=== PATIENT | male | born 2000 | race African-American/Black ===

== ENCOUNTER 2022-02-28 21:55 | Emergency (ER) | payer SELFPAY ==
--- NOTE | ~2022-02-28 | XR_ITS ---
EXAMINATION: XR chest 1V portable DATE: 02/28/2022 23:39 INDICATION: Cough. COVID-19 positive. TECHNIQUE: A single frontal view of the chest was obtained. COMPARISON: None. FINDINGS: There are mild airspace opacities in the lower lung zones. No pleural effusion or pneumotho rax. The heart size is normal. IMPRESSION: 1. Mild airspace opacities in the lower lung zones, consistent with atelectasis versus pneumonia. Reviewed, dictated and finalized at location A.
[2022-02-28 22:06] VITALS: BP 153/81; PULSE 89; RESP 18; TEMP 37.2; O2SAT 100
--- NOTE | 2022-02-28 22:06 | ED.URI ---
HPI - URI/Sore Throat General Chief Complaint: Upper Respiratory Infection Stated Complaint: AMB Time Seen by Provider: 02/28/22 22:06 Source: patient History of Present Illness HPI Narrative: 21-year-old male with no significant past medical history presents to the ER with a 12 hour history of -- nausea with decreased oral intake. No vomiting or diarrhea. -- diffuse abdominal pain. -- Low-grade fever -- Body ache which is generalized. -- Sore throat MD elicited complaint: fever and sore throat Onset (ago): hour(s) ( started around noon.) Consistency: constant Severity: moderate Able to tolerate fluids by mouth: No Exacerbating factors: nothing Relieving factors: nothing Associated symptoms: fever, myalgias, headache, sore throat, abdominal pain and nausea Treatments prior to arrival: none Related Data Home Medications Medication Instructions Recorded Confirmed No Home Medications 02/28/22 02/28/22 Allergies Allergy/AdvReac Type Severity Reaction Status Date / Time codeine Allergy Unknown Verified 02/28/22 22:05 Review of Systems Review of Systems: All systems reviewed & are unremarkable except as noted in HPI and below Constitutional: Constitutional: Reports as per HPI, Reports no additional constitutional complaints and Reports fever(s) Eyes: Eyes: Reports as per HPI and Reports no additional eye complaints ENT: Reports system reviewed and no additional complaints, except as documented and Reports as per HPI Comments: Sore throat Cardiovascular: Cardiovascular: Reports as per HPI and Reports no additional cardiovascular complaints Respiratory: Respiratory: Reports as per HPI and Reports no additional respiratory complaints Gastrointestinal: Gastrointestinal: Reports as per HPI and Reports no additional gastrointestinal complaints Genitourinary: Genitourinary: Reports no additional male genitourinary complaints and Reports as per HPI Musculoskeletal: Musculoskeletal: Reports no additional musculoskeletal complaints, Reports as per HPI and Reports myalgias Integumentary/Breasts: Skin/Breast: Reports system reviewed and no additional complaints, except as docu and Reports as per HPI Neurologic: Reports system reviewed and no additional complaints, except as documented and Reports headache(s) Psychiatric: Psychiatric: Reports no additional psychiatric complaints and Reports as per HPI Endocrine: Endocrine: Reports no additional endocrine complaints and Reports as per HPI Hematologic/Lymphatic: Hematologic/Lymphatic: Reports no additional hematologic/lymphatic complaints and Reports as per HPI Allergic/Immunologic: Allergic/Immunologic: Reports no additional allergic/immunologic complaints and Reports as per HPI Exam Const: General: no acute distress and alert Orientation/consciousness: patient oriented x3 HENMT: Head: normal to inspection Other: increased ear wax obliterating the tympanic membrane Eyes: Conjunctivae: conjunctivae normal Pupils: Equal, round and reactive pupils present EOM: EOMs intact bilaterally Neck: Neck: normal visual inspection, no lymphadenopathy and no meningeal signs Chest: Chest palpation & inspection: normal inspection of the chest Resp: Effort & Inspection: normal respiratory effort Auscultation: clear to auscultation bilaterally Cardio: Rate: regular rate Rhythm: regular rhythm GI: GI Palp: Yes Soft to palpation Other: no tenderness/rigidity / rebound. : General: Yes no CVA tenderness Testes: Testes normal Back/Spine/Pelvis: Back: no CVA tenderness Skin: General skin exam: normal color Rashes: no rashes Neuro: General: patient oriented x3, moves all extremities and no meningeal signs Extrem: General: normal to inspection Psych: Mental Status: mental status grossly normal Course Course Emergency Course: Improvement in body pain with IV Toradol. Vital Signs Vital signs: Vital Signs Temperature 37.2 C 02/28/22 22:06 Pulse Rate 89
[2022-02-28] MEDS: LACTATED RINGERS 1,000 ML 999 ML IV CONT (22:23)
[2022-02-28] MEDS: ONDANSETRON INJ 4 MG/2 ML VIAL IV PUSH (22:23)
[2022-02-28 22:36] LABS: Basophils Absolute Auto 0.03 K/mm3 (0.00-0.10); Basophils Percent Auto 0.4 % (0.0-1.0); Hematocrit 45.1 % (40.0-54.0); Hemoglobin 15.5 g/dL (14.0-18.0); Immature Granulocyte Absolute 0.02 K/mm3 (0.00-0.00); Immature Granulocyte Percent A 0.3 % (0.0-0.0); Lymphocytes Absolute Auto 0.15 K/mm3 (1.10-4.50); Lymphocytes Percent Auto 2.1 % (18.0-42.0); Mean Corpuscular HGB Conc 34.4 g/dL (32.0-36.0); Mean Corpuscular Hemoglobin 30.4 pg (27.0-31.0); Mean Corpuscular Volume 88.4 fL (78.0-102.0); Mean Platelet Volume 10.1 fl (8.7-11.0); Monocytes Absolute Auto 0.79 K/mm3 (0.10-0.90); Monocytes Percent Auto 11.2 % (2.0-11.0); Neutrophils Absolute Auto 6.1 K/mm3 (1.7-7.2); Platelet Count Result 208 K/mm3 (150-420); Red Cell Distribution Width 12.3 % (11.6-14.4); White Blood Count 7.1 K/mm3 (4.8-10.8)
[2022-02-28 22:56] LABS: Influenza Control Valid (Valid); Lactic Acid Reflex 1.4 mmol/L (0.4-2.0); SARS-CoV-2 Ag Positive (Negative)
[2022-02-28 23:03] LABS: Alanine Aminotransferase 21 U/L (16-63); Albumin Level 4.3 g/dL (3.4-5.0); Alkaline Phosphatase 106 U/L (46-116); Anion Gap 9 mmol/L (8-16); Aspartate Amino Transferase 10 U/L (15-37); Bilirubin,Total 0.6 mg/dL (0.00-1.00); Blood Urea Nitrogen 9 mg/dL (7-18); Carbon Dioxide 28 mmol/L (21-32); Chloride 99 mmol/L (98-108); Estimated CRCL calculation 130 ml/min; Estimated Glomerular Filt Rate > 60; Glucose 117 mg/dL (70-99); Lipase 41 U/L (73-393); Osmolality Calculated 281 mOsm/kg (285-295); Potassium 3.7 mmol/L (3.5-5.1); Sodium 136 mmol/L (136-145); Total Protein 7.6 g/dL (6.4-8.2)
[2022-02-28] MEDS: KETOROLAC 30 MG/ML VIAL (*BKC) IV PUSH (23:15)
[2022-03-01 00:15] VITALS: BP 140/78; PULSE 85; RESP 20; TEMP 37.2; O2SAT 98
== END 2022-03-01 00:25 | disposition home or self-care (01) ==
PROVIDERS: Emergency Provider Internal Medicine Critical Care Medicine
DX: U07.1 COVID-19 (principal); J06.9 Acute upper respiratory infection, unspecified
CPT/HCPCS: 71045; 80053; 83605; 83690; 85025; 87426; 87804; 96361; 96374; 96375; 99284; C9803; J1885; J2405; J7120

== ENCOUNTER 2022-07-11 07:26 | Emergency (ER) | payer SELFPAY ==
--- NOTE | ~2022-07-11 | XR_ITS ---
XR shoulder LT min 2V 07/11/2022 08:05 INDICATION: Left shoulder pain PROCEDURE: 4 views left shoulder COMPARISON: No prior studies for comparison. FINDINGS: Fracture, dislocation or subluxation is not identified. The soft tissues appear within norm al limits. No foreign bodies are identified. IMPRESSION: 1: NO ACUTE BONE OR JOINT ABNORMALITY IDENTIFIED. Reviewed, dictated and finalized at location B.
[2022-07-11 07:36] VITALS: BP 155/90; PULSE 69; RESP 20; TEMP 36.4; O2SAT 99
--- NOTE | 2022-07-11 07:49 | ED.GENADULT ---
HPI - General Adult General Chief complaint: Extremity Injury, Upper Stated complaint: Dislocated shoulder History of Present Illness HPI narrative: This is a 21-year-old male history of left shoulder dislocations from the ED with shoulder pain. Patient says that he frequently feels the joint slip out of place but then are reduced. Patient believes he may have dislocated at last . This patient has complained a achy pain in his left shoulder that is nonradiating, 8/10 intensity constant. He has not taken any pain medications at home. He denies numbness tingling weakness to the extremity. He denies any traumatic events. He has no other complaints this time Related Data Allergies Allergy/AdvReac Type Severity Reaction Status Date / Time codeine Allergy Unknown Verified 07/11/22 07:54 Review of Systems Review of Systems: CONSTITUTIONAL: Denies night sweats. EYES: No eye pain ENT: Denies rhinorrhea CARDIOVASCULAR: Denies palpitations RESPIRATORY: Denies hemoptysis GASTROINTESTINAL: Denies hematemesis GENITOURINARY: Denies hematuria. SKIN: Denies rash MUSCULOSKELETAL: Denies myalgia. NEUROLOGIC: Denies weakness. PSYCHIATRIC: Denies delusions [facility] Past Medical History Medical History (Updated 07/11/22 @ 07:55 by Ever Forde MD) Shoulder dislocation Social History Social History (Updated 07/11/22 @ 07:51 by Ever Forde MD) Social History: positive for alcohol and tobacco use. Exam Narrative: APPEARANCE: No apparent distress. Head atraumatic. EYES: PERRLA/EOMI, NOSE: Normal no drainage NECK: Supple, Trachea midline RESPIRATORY: CTAB, No increased work of breathing. CARDIOVASCULAR: S1S2 appreciated ABDOMINAL: Soft, nontender, nondistended, MUSCULOSKELETAl: Focal exam of the left upper extremity revealed pain on active range of motion past 90? of abduction. Neer and Villagran maneuvers are positive. No paresthesias over the lateral deltoid. Patient is able to give a thumbs-up sign and okay sign and dorsiflex his wrist against pressure. Radial and ulnar pulses are +2. Cap refills less than 2 seconds. NEURO: Alert. Moving 4/4 extremities SKIN:: Warm, dry. Normal color PSYCHIATRIC: Normal affect Course Vital Signs Vital signs: Vital Signs Temperature 97.6 F 07/11/22 07:36 Pulse Rate 69 07/11/22 07:36 Respiratory Rate 20 07/11/22 07:36 Blood Pressure 155/90 H 07/11/22 07:36 Pulse Oximetry 99 07/11/22 07:36 Oxygen Delivery Room Air 07/11/22 07:36 Temperature 97.6 F 07/11/22 07:36 Pulse Rate 69 07/11/22 07:36 Respiratory Rate 20 07/11/22 07:36 Blood Pressure 155/90 H 07/11/22 07:36 Pulse Oximetry 99 07/11/22 07:36 Oxygen Delivery Room Air 07/11/22 07:36 Medical Decision Making MDM Narrative Medical decision making narrative: Is a 21-year-old male with a history of chronic shoulder pain presenting ED with shoulder pain. His shoulder is not dislocated. His physical exam is consistent with shoulder impingement syndrome. He was given Motrin/Tylenol for pain control. He has been given follow-up with the orthopedic clinic. Vital Signs Vital Signs: Vital Signs Temperature 97.6 F 07/11/22 07:36 Pulse Rate 69 07/11/22 07:36 Respiratory Rate 20 07/11/22 07:36 Blood Pressure 155/90 H 07/11/22 07:36 Pulse Oximetry 99 07/11/22 07:36 Oxygen Delivery Room Air 07/11/22 07:36 Temperature 97.6 F 07/11/22 07:36 Pulse Rate 69 07/11/22 07:36 Respiratory Rate 20 07/11/22 07:36 Blood Pressure 155/90 H 07/11/22 07:36 Pulse Oximetry 99 07/11/22 07:36 Oxygen Delivery Room Air 07/11/22 07:36 Discharge Plan Discharge Clinical Impression: Left shoulder pain Patient Disposition: Home, Self-Care Condition: Stable Instructions: Antibiotic Form, Shoulder Pain (ED) Additional Instructions: Please take Motrin, Robaxin for pain control. Can apply ice 3-4 times per day. You can use a
[2022-07-11] MEDS: IBUPROFEN 400 MG TABLET 800 MG PO (08:03)
[2022-07-11] MEDS: ACETAMINOPHEN 500 MG TABLET 1000 MG PO (08:03)
[2022-07-11 08:50] VITALS: BP 133/74; PULSE 70; RESP 20; O2SAT 98
== END 2022-07-11 08:54 | disposition home or self-care (01) ==
PROVIDERS: Emergency Provider Emergency Medicine
DX: M25.512 Pain in left shoulder (principal)
CPT/HCPCS: 73030; 99283; A9270

== ENCOUNTER 2022-10-24 02:46 | Emergency (ER) | payer SELFPAY ==
[2022-10-24 02:52] VITALS: BP 134/67; PULSE 112; RESP 22; TEMP 38.7; O2SAT 100
--- NOTE | 2022-10-24 02:53 | ED.URI ---
HPI - URI/Sore Throat General Chief Complaint: Upper Respiratory Infection Stated Complaint: sob Time Seen by Provider: 10/24/22 02:51 Source: patient, EMS and RN notes reviewed Mode of arrival: ambulatory Limitations: no limitations History of Present Illness MD elicited complaint: fever and cough Onset (ago): day(s) (1) Consistency: constant Severity: moderate Able to tolerate fluids by mouth: Yes Exacerbating factors: nothing Relieving factors: nothing Context: sick contacts Associated symptoms: fever, chills, myalgias, headache, shortness of breath and nausea Treatments prior to arrival: none Related Data Allergies Allergy/AdvReac Type Severity Reaction Status Date / Time codeine Allergy Unknown Verified 07/11/22 07:54 Review of Systems Review of Systems: All systems reviewed & are unremarkable except as noted in HPI and below PMFSH Past Medical History Medical History (Updated 10/24/22 @ 04:19 by Irving Dinh MD) Shoulder dislocation Surgical History Surgical History (Updated 10/24/22 @ 02:56 by Irving Dinh MD) No pertinent past surgical history Social History Social History Social History: positive for alcohol and tobacco use. Exam Const: General: healthy appearing, no acute distress and alert Nutritional Appearance: well nourished Orientation/consciousness: patient oriented x3 Limitations: no limitations HENMT: Head: normal to inspection Ears: external ears normal Eyes: Conjunctivae: conjunctivae normal Pupils: Equal, round and reactive pupils present EOM: EOMs intact bilaterally Neck: Neck: normal visual inspection Resp: Effort & Inspection: normal respiratory effort Auscultation: clear to auscultation bilaterally Cardio: Rate: tachycardic Rhythm: regular rhythm GI: GI Palp: Yes Soft to palpation and No Tenderness to palpation present (GI) Auscultation: normal bowel sounds Back/Spine/Pelvis: Cervical Spine: cervical ROM normal Thoracic/Lumbar Spine: thoraco-lumbar ROM normal Skin: General skin exam: normal color Rashes: no rashes Neuro: General: patient oriented x3, moves all extremities, no focal motor deficits and CN's II-XI intact bilaterally Speech: normal speech Extrem: General: normal to inspection and no clubbing, cyanosis or edema Psych: Mental Status: mental status grossly normal Affect: normal affect Attitude: cooperative Course Vital Signs Vital signs: Vital Signs Temperature 38.7 C H 10/24/22 02:52 Pulse Rate 112 H 10/24/22 02:52 Respiratory Rate 22 H 10/24/22 02:52 Blood Pressure 134/67 10/24/22 02:52 Pulse Oximetry 100 10/24/22 02:52 Oxygen Delivery Room Air 10/24/22 02:52 Temperature 37.7 C H 10/24/22 04:18 Pulse Rate 89 10/24/22 04:18 Respiratory Rate 20 10/24/22 04:18 Blood Pressure 134/72 10/24/22 04:18 Pulse Oximetry 100 10/24/22 04:18 Oxygen Delivery Room Air 10/24/22 03:40 MDM - URI/Sore Throat Lab Data Attestation: I reviewed the patient's lab results. Labs: Lab Results 10/24/22 Range/Units 02:54 Influenza A (RT-PCR) Positive (Negative) Influenza B (RT-PCR) Negative (Negative) SARS-CoV-2 RNA (RT-PCR) Negative (Negative) Discharge Plan Discharge Clinical Impression: Influenza Patient Disposition: Home, Self-Care Condition: Improved Instructions: Influenza (ED) Additional Instructions: Use Tylenol and or Motrin as needed for fever. Drink plenty of fluids get plenty of rest. Prescriptions: New oseltamivir [Tamiflu] 75 mg capsule 75 mg PO Q12H 5 Days Qty: 10 0RF Follow-up/Referrals: UNKNOWN,DOCTOR [Primary Care Provider] - Stand Alone Forms: Work/School Release IP Time of Disposition: 04:19
[2022-10-24 02:55] VITALS: O2SAT 100
[2022-10-24] MEDS: IBUPROFEN 600 MG TABLET PO (03:04)
[2022-10-24 03:37] LABS: Influenza A QL RT-PCR Positive (Negative); Influenza B QL RT-PCR Negative (Negative); SARS-CoV-2 RNA PCR Negative (Negative)
[2022-10-24 03:40] VITALS: BP 140/80; PULSE 112; RESP 20; TEMP 38.7; O2SAT 99
[2022-10-24 03:43] VITALS: TEMP 38.7
[2022-10-24] MEDS: OSELTAMIVIR PHOSPHATE 75 MG CAPSULE PO (03:46)
[2022-10-24 04:18] VITALS: BP 134/72; PULSE 89; RESP 20; TEMP 37.7; O2SAT 100
== END 2022-10-24 04:24 | disposition home or self-care (01) ==
PROVIDERS: Emergency Provider Emergency Medicine
DX: J11.1 Influenza due to unidentified influenza virus with other respiratory manifestations (principal); Z20.822 Contact with and (suspected) exposure to COVID-19
CPT/HCPCS: 87502; 99283; A9270; U0003; U0005